=== PATIENT | male | born 1955 | race Two or more races ===

== ENCOUNTER 2017-07-23 10:47 | Outpatient (CLI) | payer OTHER | END 2017-07-23 10:58 | disposition home or self-care (01) | LOC: SONOGRAMA 10:47 → MAMO-SONO 11:45 | DX: M75.102 Unspecified rotator cuff tear or rupture of left shoulder, not specified as traumatic (principal); M25.512 Pain in left shoulder ==

== ENCOUNTER 2017-08-07 09:23 | Outpatient (CLI) | payer OTHER | END 2017-08-07 10:01 | disposition home or self-care (01) | LOC: RAD 09:23 | DX: M25.512 Pain in left shoulder (principal) ==

== ENCOUNTER 2022-06-21 07:52 | Outpatient (CLI) | payer OTHER | END 2022-06-21 07:56 | disposition home or self-care (01) | LOC: RAD 07:52 | PROVIDERS: ATTEND Surgery | DX: C20 Malignant neoplasm of rectum (principal); C21.1 Malignant neoplasm of anal canal ==

== ENCOUNTER 2022-06-28 09:45 | Inpatient (IN) | payer OTHER ==
[~2022-06-28] VITALS: Ht 175.3 cm; Wt 63.5 kg
[~2022-06-28 09:45] MED LIST: CARVEDILOL12.5 MG; CARVEDILOL6.25 MG; DIOVAN40 MG PO; FOLIC ACID0.8 M1 PO; LIPITOR20 MG PO; METFORMIN HCL500 M2 PO; TYLENOL ARTHRI650 MG PO
[2022-07-04] MEDS ORDERED: TRAM1TAB98 PO (07:43)
[2022-07-04] MEDS ORDERED: MIRALAX17 GM PO (07:43)
== END 2022-07-04 10:38 | disposition home or self-care (01) | DRG 334 ==
LOC: O/R 07-03 05:43 → SURH 07-03 07:00
PROVIDERS: ADMIT Surgery; ATTEND Surgery
PROC: 0DJD8ZZ Inspection of Lower Intestinal Tract, Via Natural or Artificial Opening Endoscopic (ICD-10-PCS; 2022-07-03)
PROC: 3E0T3BZ Introduction of Anesthetic Agent into Peripheral Nerves and Plexi, Percutaneous Approach (ICD-10-PCS; 2022-07-03)
PROC: 0DBP4ZZ Excision of Rectum, Percutaneous Endoscopic Approach (ICD-10-PCS; principal; 2022-07-03 07:00)
DX: C20 Malignant neoplasm of rectum (principal); Z20.822 Contact with and (suspected) exposure to COVID-19
CPT/HCPCS: 0184T; 64430; 45300

== ENCOUNTER 2022-07-13 07:44 | Outpatient (CLI) | payer OTHER ==
[~2022-07-13 07:44] MED LIST changes: +MIRALAX17 GM PO; +TRAM1TAB98 PO
== END 2022-07-13 07:48 | disposition home or self-care (01) ==
LOC: NUCLEAR 07:44
PROVIDERS: ATTEND Surgery
DX: C20 Malignant neoplasm of rectum (principal); C21.1 Malignant neoplasm of anal canal
CPT/HCPCS: 78815; A9552

== ENCOUNTER 2022-08-31 07:31 | Day surgery (SDC) | payer OTHER ==
[~2022-08-31 07:31] MED LIST changes: +GLYBURID-METFO1 EACH PO
[2022-08-31] MEDS ORDERED: TRAM1TAB98 PO (11:29)
== END 2022-08-31 14:35 | disposition home or self-care (01) ==
LOC: CIR.AMB 07:31
PROVIDERS: ATTEND Surgery
DX: C20 Malignant neoplasm of rectum (principal); Z20.822 Contact with and (suspected) exposure to COVID-19; I10 Essential (primary) hypertension

== ENCOUNTER → 2023-03-30 07:54 | Outpatient (CLI) | payer OTHER | END | disposition home or self-care (01) | LOC: NUCLEAR 03-27 08:00 | PROVIDERS: ATTEND Surgery | DX: C20 Malignant neoplasm of rectum (principal); C21.1 Malignant neoplasm of anal canal | CPT/HCPCS: 78816; A9552 ==

== ENCOUNTER 2023-06-04 07:11 | Outpatient (CLI) | payer OTHER | END 2023-06-04 07:15 | disposition home or self-care (01) | LOC: RAD 07:11 | PROVIDERS: ATTEND Surgery | DX: C20 Malignant neoplasm of rectum (principal); C21.1 Malignant neoplasm of anal canal ==

== ENCOUNTER 2023-06-11 05:55 | Day surgery (SDC) | payer OTHER ==
[2023-06-11] MEDS ORDERED: levoFLOXacin IN DEXTROSE 5 % 500MG/100ML PIGGYBAG IV SCH (06:00)
[2023-06-11] MEDS ORDERED: LIDOCAINE HCL 1%/Epi 20ML VIAL IJ ONE ×2 (07:50→08:45)
[2023-06-11] MEDS ORDERED: levoFLOXacin IN DEXTROSE 5 % 500MG/100ML PIGGYBAG IV ONE ×2 (07:53→08:45)
[2023-06-11] MEDS ORDERED: BUPIVACAINE HCL 30 ML VIAL IJ ONE (08:45)
[2023-06-11] MEDS ORDERED: TRAM1TAB98 PO (08:52)
== END 2023-06-11 11:40 | disposition home or self-care (01) ==
LOC: CIR.AMB 05:55
PROVIDERS: ATTEND Surgery
DX: C20 Malignant neoplasm of rectum (principal); Z88.0 Allergy status to penicillin

== ENCOUNTER 2024-04-24 07:20 | Outpatient (CLI) | payer OTHER | END 2024-04-24 07:21 | disposition home or self-care (01) | LOC: NUCLEAR 07:20 | PROVIDERS: ATTEND Surgery | DX: C20 Malignant neoplasm of rectum (principal); C21.1 Malignant neoplasm of anal canal | CPT/HCPCS: 78815; A9552 ==

== ENCOUNTER 2025-01-01 07:16 | Outpatient (CLI) | payer OTHER | END 2025-01-01 07:23 | disposition home or self-care (01) | LOC: TOM 07:16 | PROVIDERS: ATTEND Specialist | DX: R91.1 Solitary pulmonary nodule (principal) ==